=== PATIENT | female | born 2005 | race Two or more races ===

== ENCOUNTER 2025-03-16 18:02 | Emergency (ER) | payer BC, SELFPAY ==
[2025-03-16 19:18] VITALS: BP 113/65; PULSE 83; RESP 17; O2SAT 99
[2025-03-16 19:29] VITALS: BMI 21.4
--- NOTE | 2025-03-16 19:29 | EDNOTE_ITS ---
ED Allergic Reaction RME/HPI General Chief complaint: Skin/Abscess/Foreign Body Stated complaint: Rash X 4 days Time Seen by Provider: 03/16/25 19:27 Arrival date/time: 03/16/25 18:02 RME / HPI RME / HPI narrative: This section includes all my notes and documentations, including HPI, PE, and ED course. Scott Haywood MD HPI: 19 y/o female here with several days of itchy rash all over her body. No throat tightness. No shortness of breath. No other complaints. ROS: All negative except as documented in HPI. Physical Exam: General: Alert and oriented. No acute distress when remaining still. Eyes: Conjunctivae and lids clear. ENT: No nasal congestion. Patent airway. No signs of angioedema. Neck: Supple. Heart: RRR. Lungs: No respiratory distress. Good air movement. No rhonchi, wheezing, rales. Abdomen: Soft and nontender. Skin: Warm and dry. Diffuse and severe hives noted. Neuro: Alert and oriented X 3. I reviewed all diagnostic test results: Blood tests unremarkable. At this point, diagnoses include: Full body hives. Treatment here included: IV fluid, Toradol 30 mg, Benadryl 50 mg, Pepcid 20 mg, Zofran 4 mg, and Solu-Medrol injection 5 mg IV. Significant improvement noted. Recommended outpatient care. Based on my best medical judgment, made decision no further evaluation or treatment indicated at this time. Patient understands and agrees to the discharge instructions customized and printed, see below. Discharge instructions from Dr. Haywood: 1. You were treated today for probable allergic reaction. 2. To help prevent the reaction going into your airways and your throat, take prednisone as prescribed. 3. And take Benadryl 50 mg every 6-8 hours today and tomorrow then as needed. 4. Increase oral fluid and maintain clear urine.? If dark or yellow, increase oral fluid.? This will help eliminate any allergens in your blood system. 5. Despite severe itching, avoid scratching. Which will make the itching worse and cause skin injury which can cause infection. Apply cold compress instead. 6. See a private doctor on 03/18/2025 for recheck and further care. Ask for a referral to see an broom machine operator so you can be tested to know what to avoid in the future. 7. Seek immediate medical care with worsening, breathing difficulty, or with any concerns. Scott Haywood MD Related Data Previous Rx's ?Medication ?Instructions ?Recorded prednisone 50 mg tablet 50 mg PO BID 3 days #6 tabs 03/16/25 Allergies Allergy/AdvReac Type Severity Reaction Status Date / Time No Known Drug Allergies Allergy Verified 03/16/25 18:10 Review of Systems Review of Systems Systems Reviewed: All systems reviewed, normal except as documented ED Exam Narrative Physical exam: Refer to [facility] Course Quality Measures none Orders Category Date Time Status Saline [Insert IV] NOW Care 03/16/25 19:28 Completed Bilirubin,Direct Stat Lab 03/16/25 19:39 Completed CBC Stat Lab 03/16/25 19:39 Completed CMP [Comprehensive Metabolic Panel] Stat Lab 03/16/25 19:39 Completed Free T4 (Free Thyroxine) Stat Lab 03/16/25 19:39 Completed HCG,Qualitative Serum Stat Lab 03/16/25 19:39 Completed TSH [Thyroid Stimulating Hormone] Stat Lab 03/16/25 19:39 Completed DiphenhydrAMINE INJ [Benadryl Inj] Med 03/16/25 19:28 Discontinued 50 mg IVP X1 STA Famotidine Inj [Pepcid Inj] Med 03/16/25 19:28 Discontinued 20 mg IVP X1 ONE Ketorolac Inj [Toradol Inj] Med 03/16/25 19:28 Discontinued 30 mg IVP X1 ONE MethylPREDNISolone.* [SoluMEDROL Inj] Med 03/16/25 19:28 Discontinued 125 mg IVP X1 ONE Ondansetron Inj [Zofran Inj] Med 03/16/25 19:28 Discontinued 4 mg IVP X1 ONE Sodium Chloride 0.9% 1000 ml [Ns] 1,000 ml Med 03/16/25 19:28 Discontinued IV 999 mls/hr Vital Signs Vital signs: Vital Signs Pulse Rate 83 03/16/25 19:18 Respiratory Rate 17 03/16/25 19:18 Blood Pressure 113/65 03/16/25 19:18 Pulse Oximetry (%) 99 03/16/25 19:18 Oxygen Delivery Method Room Air 03/16/25 19:18 Allergic Reaction MDM Narrative MDM Narrative:: Scribe Attestation: Krystal Pal, am scribing for and in the presence of Dr. Haywood. Provider Notation: Although this document has been carefully reviewed, there may still be some phonetic and other typographical errors.? These errors are purely grammatical due to imperfections in the software program and should not be construed in any way to? compromise the substance of the patient's medical care during this visit. 19 y/o female here with several days of itchy rash all over her body. No throat tightness. No shortness of breath. No other complaints. Patient data External records reviewed:: [facility] previous records (No prior ED records available for review.) Clinical information provided by:: patient Social determinants that could affect healthcare access:: none Patient has the following chronic illnesses:: None reported How is presenting disease/condition affected by chronic disease/condition?: no chronic disease Evaluation data The following diagnostics were reviewed and interpreted by me:: lab results Lab and/or radiology exams considered but not ordered:: None Interpretation Summary: I reviewed all diagnostic test results: Blood tests unremarkable. Medications / Prescriptions Medications or Prescriptions considered but not ordered:: None Medication administrations:: Medication Administration History Discontinued Medications Diphenhydramine HCl (Diphenhydramine Inj 50 Mg/Ml Vial) 50 mg IVP X1 STA Stop: 03/16/25 19:29 Last Admin: 03/16/25 19:43 Dose: 50 mg Documented By: EF Famotidine (Famotidine Inj 10 Mg/Ml Vial 2 Ml) 20 mg IVP X1 ONE Stop: 03/16/25 19:29 Last Admin: 03/16/25 19:44 Dose: 20 mg Documented By: EF Sodium Chloride (Ns) 1,000 mls @ 999 mls/hr IV .Q1H1M ONE Stop: 03/16/25 20:28 Last Infusion: 03/16/25 20:44 Dose: Infused Documented By: Admin: 03/16/25 19:43 Dose: 999 mls/hr Documented By: EF Ketorolac Tromethamine (Ketorolac Inj 30 Mg/Ml Vial) 30 mg IVP X1 ONE Stop: 03/16/25 19:29 Methylprednisolone Sodium Succinate (Methylprednisolone Sod Succ 62.5 Mg/Ml 2ml Vial) 125 mg IVP X1 ONE Stop: 03/16/25 19:29 Last Admin: 03/16/25 19:44 Dose: 125 mg Documented By: EF Ondansetron HCl (Ondansetron Inj 2 Mg/Ml Inj 2 Ml) 4 mg IVP X1 ONE; Protocol Stop: 03/16/25 19:29 Last Admin: 03/16/25 19:44 Dose: 4 mg Documented By: EF IV fluid, Toradol 30 mg, Benadryl 50 mg, Pepcid 20 mg, Zofran 4 mg, and Solu-Medrol 125 mg IV. Consultations Consultation(s) initiated? (list below): No Diagnosis Differential Diagnosis allergic reaction: allergic reaction, angioedema, contact dermatitis, adverse reaction to drug, viral enanthem and urticaria Most likely diagnosis given after review of the tests above:: Full body hives Admission Indicated Admission indicated?: not indicated Explain why admission is indicated or not indicated:: With significant improvement, there was no indication for admission. Admission Request Was there a request for admission?: No Disposition Plan Disposition Plan: Discharge Discharge Attestation Discharge Attestation: The patient and all family members were given an opportunity to ask questions and understood the discharge instructions. Discharge instructions specifically effects, indications for sooner follow up or return to the emergency department, and the expected course of current diagnosis. Patient condition: Stable Discharge Plan Plan Patient Disposition: HOME (Self Care) Prescriptions/Referrals Prescriptions/Med Rec: New prednisone 50 mg tablet 50 mg PO BID 3 Days Qty: 6 0RF Referrals: Conner Desai MD [Primary Care Provider] - In 1 week Problem List Clinical Impression: Full body hives Patient/Caregiver Discharge Instructions Discharge Activity: activity as tolerated Education Materials: ED Hives (Adult) Additional Instructions: Discharge instructions from Dr. Haywood: 1. You were treated today for probable allergic reaction. 2. To help prevent the reaction going into your airways and your throat, take prednisone as prescribed. 3. And take Benadryl 50 mg every 6-8 hours today and tomorrow then as needed. 4. Increase oral fluid and maintain clear urine.? If dark or yellow, increase oral fluid.? This will help eliminate any allergens in your blood system. 5. Despite severe itching, avoid scratching. Which will make the itching worse and cause skin injury which can cause infection. Apply cold compress instead. 6. See a private doctor on 03/18/2025 for recheck and further care. Ask for a referral to see an broom machine operator so you can be tested to know what to avoid in the future. 7. Seek immediate medical care with worsening, breathing difficulty, or with any concerns. Print Language: Chinese Stand Alone Forms: [facility] Award Info., Patient Portal Info Letter
[2025-03-16] MEDS: DiphenhydrAMINE INJ 50 MG/ML VIAL IVP (19:43)
[2025-03-16] MEDS: SODIUM CHLORIDE 0.9% 1000 ML 1,000 ML 999 ML IV (19:43)
[2025-03-16] MEDS: ONDANSETRON INJ 2 MG/ML INJ 2 ML 4 MG IVP (19:44)
[2025-03-16] MEDS: MethylPREDNISolone SOD SUCC 62.5 MG/ML 2ML VIAL 125 MG IVP (19:44)
[2025-03-16] MEDS: FAMOTIDINE INJ 10 MG/ML VIAL 2 ML 20 MG IVP (19:44)
[2025-03-16 19:48] LABS: Basophils % (Auto) 0 % (0-2.5); Eosinophils % (Auto) 0 % (0-10); Hematocrit 39.1 % (36.0-46.0); Hemoglobin 13.4 g/dL (12.0-16.0); Immature Granulocytes % (Auto) 0 % (0-0); Immature Granulocytes Auto 0.01 Thou/mm3 (0.00-0.00); Lymphocytes # (Auto) 0.8 Thou/mm3 (1.0-4.8); Lymphocytes % (Auto) 11 % (10-50); Mean Corpuscular HGB Conc 34.3 g/dl (31.0-37.0); Mean Corpuscular Hemoglobin 29.6 pg (25.0-35.0); Mean Corpuscular Volume 87 fL (80-100); Monocytes # (Auto) 0.5 Thou/mm3 (0.0-0.8); Monocytes % (Auto) 7 % (0-12); Neutrophils # (Auto) 5.9 Thou/mm3 (1.8-7.7); Neutrophils % (Auto) 81 % (37-80); Nucleated Red Blood Cell % 0 /100 WBC (0); Platelet Count 280 Thou/mm3 (140-440); RDW Standard Deviation 42.1 fL (36.4-46.3); Red Blood Count 4.52 Miln/mm3 (4.00-5.20); White Blood Count 7.3 Thou/mm3 (3.6-11.0)
[2025-03-16 20:19] LABS: Alanine Aminotransferase 15 U/L (10-49); Albumin, Serum 4.8 gm/dL (3.5-5.0); Albumin/Globulin Ratio 1.8 (1.2-2.2); Alkaline Phosphatase 82 U/L (46-116); Anion Gap 11 (7-16); Aspartate Amino Transferase 18 U/L (0-34); BUN/Creatinine Ratio 16 Ratio (12-20); Bilirubin,Direct < 0.1 mg/dL (0.0-0.3); Bilirubin,Total 0.2 mg/dL (0.3-1.2); Blood Urea Nitrogen 11 mg/dL (9-23); Calcium 9.5 mg/dL (8.3-10.6); Calcium (Corrected) 9.5 mg/dL (8.5-10.1); Carbon Dioxide 24.9 mMol/L (20.0-31.0); Chloride 104 mMol/L (98-107); Creatinine (Component) 0.7 mg/dL (0.6-1.3); Estimated Creatinine Clearance 91.3 mL/min (>60); Free T4 (Free Thyroxine) 0.95 ng/dL (0.89-1.76); Globulin 2.6 gm/dL (2.3-3.5); Glucose 160 mg/dL (74-106); Osmolality,Calculated 281 (275-295); Potassium 3.6 mMol/L (3.4-5.1); Sodium 140 mMol/L (136-145); Total Protein 7.4 gm/dL (5.7-8.2); eGFR > 60 See Note
[2025-03-16 20:28] LABS: HCG,Qualitative Serum Negative
[2025-03-16 21:09] VITALS: BP 124/78; PULSE 90; RESP 16; O2SAT 99
== END 2025-03-16 21:11 | disposition home or self-care (01) ==
PROVIDERS: Emergency Provider Emergency Medicine; PCP Obstetrics & Gynecology
DX: L50.9 Urticaria, unspecified (principal)
CPT/HCPCS: 36415; 80053; 81001; 82248; 84439; 84443; 84703; 85025; 96361; 96374; 96375; 99284; J1200; J2405; J2919; J3490; J7030